=== PATIENT | female | born 1985 | race Caucasian/White ===

== ENCOUNTER 2019-04-15 08:04 | Outpatient (CLI) | payer OTHER, SELFPAY ==
--- NOTE | 2019-04-15 08:11 | US_ITS ---
WS: [id number] ULTRASOUND RIGHT BREAST HISTORY: BREAST ABSCESS COMPARISON: None available. TECHNIQUE: 2-D and Doppler. Markedly dilated ducts posterior to the nipple. Some of these ducts contain thick material which is h ypervascular. During real-time imaging vascularity was noted within the soft tissue material filling the ducts. Most significant abnormalities along the 8:00 area. There is branching material within the ducts. This does extend to the nipple. There is no focal abscess. Notified Susannah Emelina at 04/15/2019 9:09 AM. Not available. US/US breast RT limited* [id number] IMPRESSION: BI-RADS: 4A-Suspicious: Low FOLLOW-UP: See Report Suspect mastitis with no abscess at this time. There is significant increased v ascularity within the material distending the ducts in a periareolar distributi on. Intraductal neoplasm is not excluded. Short-term treatment with antibiotics recommended. If these findings do not resolve biopsy should be performed.
== END 2019-04-15 08:05 | disposition home or self-care (01) ==
LOC: RAD 08:08
PROVIDERS: Family Provider Family Medicine; PCP Family Medicine; Visit Provider Nurse Practitioner Family
DX: N61.1 Abscess of the breast and nipple (principal)
CPT/HCPCS: 76642

== ENCOUNTER 2019-05-24 07:55 | Outpatient (CLI) | payer OTHER, SELFPAY ==
--- NOTE | 2019-05-24 08:01 | MM_ITS ---
WS: [id number] BILATERAL DIGITAL SCREENING MAMMOGRAPHY WITH CAD CLINICAL INFORMATION: BREAST ABSCESS HISTORY: Follow-up right breast suspected mastitis. Interval treatment with antibiotics. Interval imp rovement in breast cellulitis and pain. COMPARISON: April 04, 2016 with prior ultrasound April 15, 2019 TECHNIQUE: Bilateral CC and MLO views. FINDINGS: The breasts are composed of heterogeneous fibroglandular density tissue, which can limit the detectio n of small underlying mass lesions. Dense slightly asymmetric breast tissue upper outer left breast i s unchanged since 2017. No suspicious mass, asymmetry, calcifications, or architectural distortion. N o evidence of malignancy. ULTRASOUND BREAST RIGHT TECHNIQUE: Ultrasound right breast focused area of concern. CLINICAL INFORMATION: BREAST ABSCESS COMPARISON: None. FINDINGS: Ultrasound right breast at the 8:00 position lateral to the nipple. Again seen are persistent dilated ducts similar to the prior examination with some internal debris. No evidence of drainable abscess o r fluid collection. Previously described cellulitis has improved. MM/[place] [id number] IMPRESSION: BI-RADS: 3-Probably Benign FOLLOW UP: 1 Month Follow-up Recommend short interval follow-up ultrasound in 4-6 weeks to confirm resolutio n and ensure no developing abscess or fluid collection. Clinical findings most consistent with mastitis
--- NOTE | 2019-05-24 09:03 | US_ITS ---
WS: [id number] BILATERAL DIGITAL SCREENING MAMMOGRAPHY WITH CAD CLINICAL INFORMATION: BREAST ABSCESS HISTORY: Follow-up right breast suspected mastitis. Interval treatment with antibiotics. Interval imp rovement in breast cellulitis and pain. COMPARISON: April 04, 2016 with prior ultrasound April 15, 2019 TECHNIQUE: Bilateral CC and MLO views. FINDINGS: The breasts are composed of heterogeneous fibroglandular density tissue, which can limit the detectio n of small underlying mass lesions. Dense slightly asymmetric breast tissue upper outer left breast i s unchanged since 2017. No suspicious mass, asymmetry, calcifications, or architectural distortion. N o evidence of malignancy. ULTRASOUND BREAST RIGHT TECHNIQUE: Ultrasound right breast focused area of concern. CLINICAL INFORMATION: BREAST ABSCESS COMPARISON: None. FINDINGS: Ultrasound right breast at the 8:00 position lateral to the nipple. Again seen are persistent dilated ducts similar to the prior examination with some internal debris. No evidence of drainable abscess o r fluid collection. Previously described cellulitis has improved. US/US breast RT limited* [id number] IMPRESSION: BI-RADS: 3-Probably Benign FOLLOW UP: 1 Month Follow-up Recommend short interval follow-up ultrasound in 4-6 weeks to confirm resolutio n and ensure no developing abscess or fluid collection. Clinical findings most consistent with mastitis
== END 2019-05-24 07:56 | disposition home or self-care (01) ==
LOC: RADSHAW 07:57
PROVIDERS: Family Provider Family Medicine; PCP Nurse Practitioner Family; Visit Provider Nurse Practitioner Family
DX: N61.1 Abscess of the breast and nipple (principal)
CPT/HCPCS: 76642; 77066

== ENCOUNTER 2019-06-30 07:44 | Outpatient (CLI) | payer OTHER, SELFPAY ==
--- NOTE | 2019-06-30 07:51 | US_ITS ---
WS: [id number] ULTRASOUND RIGHT BREAST HISTORY: BREAST ABSCESS OF FEMALE COMPARISON: 04/15/2019 and 05/24/2019 TECHNIQUE: 2-D and Doppler. Significant improvement in the inflammatory process in the RIGHT breast since 04/15/2019. Only slight i mprovement since 05/24/2019. There is continued duct dilatation extending towards the nipple with debr is distending the ducts. Duct measures up to 9 mm in diameter. The debris within the ducts is layerin g and slightly chele. US/US breast RT complete [id number] IMPRESSION: BI-RADS: 2-Benign FOLLOW-UP: Age 38 Mammographic and ultrasound findings are consistent with duct ectasia. No addit ional workup is necessary by imaging if the inflammatory process does not progr ess and there is no palpable abnormality. Cannot exclude distal duct papilloma but no mass is identified by imaging.
== END 2019-06-30 07:45 | disposition home or self-care (01) ==
PROVIDERS: Family Provider Family Medicine; PCP Nurse Practitioner Family; Visit Provider Nurse Practitioner Family
DX: N61.1 Abscess of the breast and nipple (principal)
CPT/HCPCS: 76641